=== PATIENT | female | born 1975 | race African-American/Black ===

== ENCOUNTER 2017-02-04 04:45 | Emergency (ER) | payer MEDICAID, OTHER ==
[~2017-02-04] VITALS: Ht 154.9 cm; Wt 68.0 kg
[2017-02-04] MEDS ORDERED: LORAZEPAM 2MG/ML CPJ IM ONE (05:15)
[2017-02-04] MEDS ORDERED: LORAZEPAM 2MG/ML CPJ IV ONE (05:15)
[2017-02-04 05:55] LABS: BASOPHILS % 1.1 % (0.0-2.0); EOSINOPHILS % 2.7 % (0.0-5.0); HEMATOCRIT. 37.7 % (36.0-48.0); HEMOGLOBIN. 12.7 g/dL (12.0-16.0); LYMPHOCYTES % 47.2 % (20.0-50.0); MEAN CORPUSCULAR HEMOGLOBIN 29.6 pg (28.0-32.0); MEAN CORPUSCULAR VOLUME 87.8 fL (81.0-99.0); MEAN PLATELET VOLUME 8.4 fl (7.4-10.4); MONOCYTES % 6.4 % (2.0-8.0); NEUTROPHILS % 42.6 % (40.0-76.0); PLATELET 266 x1000/uL (130-400); RED BLOOD CELL COUNT 4.29 mill/uL (4.2-5.4); RED CELL DISTRIBUTION WIDTH 12.2 % (11.6-14.6)
[2017-02-04 06:04] LABS: INR 1.1; PARTIAL THROMBOPLASTIN TIME 27.5 sec (24.0-34.0); PROTHROMBIN TIME 11.3 sec
[2017-02-04 06:10] LABS: CARBON DIOXIDE 27 mEq/L (21-32); CHLORIDE 106 mEq/L (98-107)
[2017-02-04 06:12] LABS: TROPONIN I < 0.02 ng/mL (0.00-0.04)
[2017-02-04] MEDS ORDERED: NAPROXEN 375MG TABLET PO ONE (07:15)
[2017-02-04] MEDS ORDERED: HYDROCODONE/ACETAMINOPHEN 5/325MG TABLET PO ONE (07:15)
[2017-02-04 07:31] VITALS: BP 128/71
== END 2017-02-04 08:35 | disposition home or self-care (01) ==
LOC: ER 04:47
DX: M54.12 Radiculopathy, cervical region (principal); Z88.0 Allergy status to penicillin; Z98.890 Other specified postprocedural states
CPT/HCPCS: 36415; 70450; 71010; 80053; 83690; 84484; 85025; 85610; 85730; 93005; 96372; 99285; J2060; Z7610